=== PATIENT | female | born 1990 | race Caucasian/White ===

== ENCOUNTER 2019-04-17 13:10 | Emergency (ER) | payer OTHER ==
[2019-04-17 13:22] VITALS: BP 129/78; PULSE 59; TEMP 97.9; BMI 23.8
[2019-04-17] MEDS ORDERED: KETOROLAC TROMETHAMINE 30 MG/1 ML VIAL IM ONE (14:04)
[2019-04-17] MEDS ORDERED: LIDOCAINE 5% TOPICAL PATCH TP ONE (14:05)
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
[2019-04-17] MEDS ORDERED: LIDOCAINE 5% TOPICAL PATCH ONE (14:11)
[2019-04-17] MEDS ORDERED: KETOROLAC TROMETHAMINE 30 MG/1 ML VIAL ONE (14:11)
== END 2019-04-17 14:21 | disposition home or self-care (01) ==
LOC: JERFT 13:10 → JER 13:10 → JERFT 14:21
PROC: 3E0233Z Introduction of Anti-inflammatory into Muscle, Percutaneous Approach (ICD-10-PCS; principal; 2019-04-17)
DX: M25.511 Pain in right shoulder (principal); S13.4XXA Sprain of ligaments of cervical spine, initial encounter; V43.52XA Car driver injured in collision with other type car in traffic accident, initial encounter; Y93.89 Activity, other specified; Y92.410 Unspecified street and highway as the place of occurrence of the external cause
CPT/HCPCS: 99281-25